=== PATIENT | male | born 1990 | race Caucasian/White ===

== ENCOUNTER 2016-08-02 11:14 | Emergency (ER) | payer SELFPAY ==
[2016-08-02 11:15] VITALS: BP 160/98; PULSE 80; RESP 20; TEMP 98.1; O2SAT 99
--- NOTE | 2016-08-02 11:35 | PD ---
Physical Exam Date Seen by Provider: Aug 02, 2016 Time Seen by Provider: 11:33 Data Data Last Documented VS Vital Signs Date Time Temp Pulse Resp B/P Pulse Ox O2 Delivery O2 Flow Rate FiO2 08/02/16 11:15 98.1 80 20 160/98 99 Room Air MDM Supervised Visit with YVES: No Narrative Course 26 YO M with complaint of pain/pressure in the LLQ. Normal BMs. +chills. History of diverticulitis. Vitals reviewed. Patient seen in triage, awaiting bed placement. Scripts No Active Prescriptions or Reported Meds Faith Aldridge Aug 02, 2016 11:35
--- NOTE | 2016-08-02 11:49 | PD ---
HPI Chief Complaint: Abdominal Pain Time Seen by Provider: 11:39 Travel History International Travel<30 days: No Contact w/Intl Traveler<30days: No Traveled to known affect area: No History of Present Illness HPI 26-year-old male presents the emergency department with 3 day history of increasing left lower quadrant discomfort and tenderness, as well as decreased appetite. Patient denies nausea, vomiting, or fever, but has had chills. His urinary symptoms. Patient has significant past medical history of diverticulitis with perforation proximal one year ago with similar presentation. 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 He states his pain is 7 out of 10 at worse. It is worse with certain movements. He has no known drug allergies. PFSH Past Surgical History Other Surgery: Yes (hand surgery) Social History Alcohol Use: Yes (SOCIALLY) Tobacco Use: Yes (couple cigarettes per week) Substance Use: No Allergies-Medications (Allergen,Severity, Reaction): Coded Allergies: No Known Allergies (Unverified , 04/22/15) Reported Meds & Prescriptions Reported Meds & Active Scripts Active No Active Prescriptions or Reported Medications Review of Systems Except as stated in HPI: all other systems reviewed are Neg General / Constitutional: Positive: Chills, No: Fever Eyes: No: Visual changes HENT: No: Headaches Cardiovascular: No: Chest Pain or Discomfort Respiratory: No: Shortness of Breath Gastrointestinal: Positive: Abdominal Pain, Loss of Appetite, No: Nausea, Vomiting, Diarrhea Genitourinary: No: Dysuria Musculoskeletal: No: Pain Skin: No Rash Neurologic: No: Weakness Psychiatric: No: Depression Endocrine: No: Polydipsia Hematologic/Lymphatic: No: Easy Bruising Physical Exam Narrative GENERAL: Patient appears no acute distress. Vital signs are stable. SKIN: Warm and mild diaphoresis. Normal color. Normal turgor. HEAD: Atraumatic. Normocephalic. EYES: Pupils equal and round. No scleral icterus. No injection or drainage. ENT: No nasal bleeding or discharge. Mucous membranes pink and moist. Pharynx is clear. Airway is patent. NECK: Trachea midline. Supple nontender. CARDIOVASCULAR: Regular rate and rhythm. RESPIRATORY: No accessory muscle use. Clear to auscultation. Breath sounds equal bilaterally. GASTROINTESTINAL: Abdomen soft, mild to moderate somewhat diffuse tenderness in the left lower quadrant, nondistended. No CVA tenderness or rebound appreciated. Hepatic and splenic margins not palpable. MUSCULOSKELETAL: Extremities without clubbing, cyanosis, or edema. No obvious deformities. NEUROLOGICAL: Awake and alert. No obvious cranial nerve deficits. Motor grossly within normal limits. Five out of 5 muscle strength in the arms and legs. Normal speech. PSYCHIATRIC: Appropriate mood and affect; insight and judgment normal. Data Data Last Documented VS Vital Signs Date Time Temp Pulse Resp B/P Pulse Ox O2 Delivery O2 Flow Rate FiO2 08/02/16 11:15 98.1 80 20 160/98 99 Room Air MDM Medical Decision Making Medical Screen Exam Complete: Yes Emergency Medical Condition: Yes Differential Diagnosis Left lower quadrant abdominal pain. Gastroenteritis. Possible early diverticulitis. Narrative Course Patient is medically stable at time of exam. Vital signs are unremarkable. I feel treatment of this patient empirically with Cipro and metronidazole is appropriate extensive medical workup. Patient will be given Cipro 500 mg twice a day 7 days. Patient also given metronidazole 500 mg 3 times a day 7 days. Take ibuprofen 600 mg 4 times a day with food as needed for discomfort. Work note for the next 2 days is given. Patient follow up if symptoms do not improve or worsen in the next several days. Diagnosis Primary Impression: Left lower quadrant abdominal tenderness without rebound tenderness Additional Impression: Diverticulitis Qualified Code: K57.32 - Diverticulitis of large intestine, unspecified bleeding status, unspecified complication status Referrals: Primary Care Physician Patient Instructions: Diverticulitis (ED), Diverticulitis Diet (ED), General Instructions Departure Forms: Work Release Enter return to work date: Aug 05, 2016 Additional Instructions: I feel treatment of this patient empirically with Cipro and metronidazole is appropriate extensive medical workup. Patient will be given Cipro 500 mg twice a day 7 days. Patient also given metronidazole 500 mg 3 times a day 7 days. Take ibuprofen 600 mg 4 times a day with food as needed for discomfort. Work note for the next 2 days is given. Patient follow up if symptoms do not improve or worsen in the next several days. Med/Other Pt SpecificInfo: Prescription(s) given Scripts No Active Prescriptions or Reported Meds Disposition: 01 DISCHARGE HOME Condition: Stable Timmy Rose Aug 02, 2016 11:49
[2016-08-02] MEDS ORDERED: IBUP-232 PO (11:51)
[2016-08-02] MEDS ORDERED: METR-1 PO (11:51)
[2016-08-02] MEDS ORDERED: CIPR-9 PO (11:51)
== END 2016-08-02 12:12 | disposition home or self-care (01) ==
LOC: NEPD 11:14
DX: K57.92 Diverticulitis of intestine, part unspecified, without perforation or abscess without bleeding (principal); F17.210 Nicotine dependence, cigarettes, uncomplicated
CPT/HCPCS: 99284